=== PATIENT | male | born 1990 | race Asian ===

== ENCOUNTER 2020-03-20 17:14 | Emergency (ER) | payer OTHER ==
[~2020-03-20] VITALS: Ht 170.2 cm; Wt 74.8 kg
[2020-03-20 17:14] VITALS: BP 134/76
--- NOTE | 2020-03-20 17:50 | NUR ---
Patient discharged to home in stable condition. Written and verbal after care instructions given. Patient verbalizes understanding of instruction.
== END 2020-03-20 17:50 | disposition home or self-care (01) ==
LOC: ER 17:19
DX: Z11.59 Encounter for screening for other viral diseases (principal); J45.909 Unspecified asthma, uncomplicated
CPT/HCPCS: 99283; U0003; C9803-CS

== ENCOUNTER 2020-04-11 07:35 | Emergency (ER) | payer OTHER ==
[~2020-04-11] VITALS: Ht 170.2 cm; Wt 74.8 kg
[2020-04-11 07:35] VITALS: BP 148/91
--- NOTE | 2020-04-11 07:41 | NUR ---
CALLED LAB FOR COVID TEST KIT.
--- NOTE | 2020-04-11 07:58 | NUR ---
Patient discharged to home in stable condition. Written and verbal after care instructions given. Patient verbalizes understanding of instruction.
== END 2020-04-11 07:58 | disposition home or self-care (01) ==
LOC: ER 07:36
DX: Z03.818 Encounter for observation for suspected exposure to other biological agents ruled out (principal); J45.909 Unspecified asthma, uncomplicated; I10 Essential (primary) hypertension
CPT/HCPCS: 99283; C9803; U0003

== ENCOUNTER 2020-04-22 10:19 | Emergency (ER) | payer OTHER ==
[~2020-04-22] VITALS: Ht 170.2 cm; Wt 74.8 kg
[2020-04-22 10:21] VITALS: BP 135/81
== END 2020-04-22 10:52 | disposition home or self-care (01) ==
LOC: ER 10:21
DX: Z11.59 Encounter for screening for other viral diseases (principal); J45.909 Unspecified asthma, uncomplicated; I10 Essential (primary) hypertension
CPT/HCPCS: 99283; C9803; U0003

== ENCOUNTER 2020-05-05 07:30 | Emergency (ER) | payer OTHER ==
[~2020-05-05] VITALS: Ht 170.2 cm; Wt 74.8 kg
[2020-05-05 07:39] VITALS: BP 137/75
--- NOTE | 2020-05-05 08:05 | NUR ---
COVID SWAB DONE AND SENT TO LAB
--- NOTE | 2020-05-06 06:40 | NUR ---
LAB CALLED REGARDING NEGATIVE COVID RESULT
== END 2020-05-05 08:06 | disposition home or self-care (01) ==
LOC: ER 07:32
DX: Z20.828 Contact with and (suspected) exposure to other viral communicable diseases (principal)
CPT/HCPCS: 99283; C9803; U0003

== ENCOUNTER 2021-04-21 13:52 | Emergency (ER) | payer OTHER ==
[~2021-04-21] VITALS: Ht 170.2 cm; Wt 72.6 kg
[2021-04-21 14:09] VITALS: BP 120/73
--- NOTE | 2021-04-21 14:40 | NUR ---
Patient discharged to home in stable condition. Written and verbal after care instructions given. Patient verbalizes understanding of instruction.
== END 2021-04-21 14:40 | disposition home or self-care (01) ==
LOC: ER 13:54
DX: Z20.822 Contact with and (suspected) exposure to COVID-19 (principal); J45.909 Unspecified asthma, uncomplicated; I10 Essential (primary) hypertension
CPT/HCPCS: 99283; C9803; U0003